=== PATIENT | female | born 1985 | race Two or more races ===

== ENCOUNTER 2017-05-10 19:25 | Emergency (ER) | payer MEDICAID ==
[~2017-05-10] VITALS: Ht 165.1 cm; Wt 57.8 kg
[~2017-05-10 19:25] MED LIST: GUAI100S2; PREN-103
[2017-05-10 19:30] VITALS: BP 115/70
[2017-05-10 20:15] LABS: BASOPHILS # (AUTO) 0.2 K/uL (0.00-0.22); EOSINOPHILS # (AUTO) 0.1 K/uL (0-0.4); EOSINOPHILS % (AUTO) 1.1 % (0.0-4.0); HEMOGLOBIN 12.2 g/dL (12.0-16.0); LYMPHOCYTES % (AUTO) 18.6 % (20.5-51.1); MEAN CORPUSCULAR HEMOGLOBIN 27 pg (27-31); MEAN CORPUSCULAR HGB CONC 32 g/dL (33-37); MEAN CORPUSCULAR VOLUME 85 fL (80-94); MONOCYTES # (AUTO) 0.6 K/uL (0.8-1.0); MONOCYTES % (AUTO) 5.8 % (1.7-9.3); NEUTROPHILS # (AUTO) 7.9 K/uL (1.8-7.7); NEUTROPHILS % (AUTO) 72.5 % (42.2-75.2); PLATELET COUNT (AUTO) 142 K/uL (140-450); RED BLOOD CELL COUNT(AUTO) 4.48 MIL/uL (4.20-5.40); RED CELL DISTRIBUTION WIDTH 12.5 % (11.6-13.7); WHITE BLOOD COUNT (AUTO) 10.8 K/uL (4.8-10.8)
[2017-05-10 20:26] LABS: ANION GAP 13.3 (8-16); CARBON DIOXIDE 26.4 mmol/L (21-32); CREATININE 0.7 mg/dL (0.6-1.3); POTASSIUM 3.7 mmol/L (3.5-5.1)
--- NOTE | 2017-05-10 20:28 | NUR ---
BIB WHEELCHAIR FROM US TO ER OF E
[2017-05-10] MEDS ORDERED: KETOROLAC 30 MG/ML VIAL IVP ONE (20:30)
[2017-05-10] MEDS ORDERED: NACL 0.9% 1,000 ML IV ONE (20:30)
[2017-05-10 20:32] LABS: ALBUMIN 3.8 g/dL (3.4-5.0); TOTAL BILIRUBIN 0.3 mg/dL (0.0-1.0)
[2017-05-10 20:44] LABS: APPEARANCE,URINE HAZY (CLEAR); BILIRUBIN,URINE NEGATIVE (NEGATIVE); BLOOD, URINE 2+ (NEGATIVE); COLOR,URINE YELLOW (YELLOW); LEUKOCYTE ESTERASE ,URINE 1+ (NEGATIVE); NITRITE, URINE NEGATIVE (NEGATIVE); UGLUCOSE NEGATIVE (NEGATIVE)
[2017-05-10 20:48] LABS: RBC,URINE 11-20 (MOD) /HPF (0-5)
[2017-05-10 20:49] LABS: WBC,URINE 6-15 (FEW) /HPF (0-5)
--- NOTE | 2017-05-10 20:56 | NUR ---
Pt came to ED c/o epigastric abdominal pain 09/13. She sates las menstral cycle was Mar 11. Pt denies taking medicine or drinking alcohol. Pt VSS. Abdomen is soft and non-tender. Bowel sounds active in all quadrants. A&Ox4. ER MD aware. Continue to monintor.
[2017-05-10 22:36] VITALS: BP 115/70
--- NOTE | 2017-05-11 04:45 | NUR ---
Patient discharged with v/s stable. Written and verbal after care instructions given and explained. Patient alert, oriented and verbalized understanding of instructions. Ambulatory with steady gait. All questions addressed prior to discharge. ID band removed. Patient advised to follow up with PMD. Rx of Zantac, Motrin, Diclegis given. Patient educated on indication of medication including possible reaction and side effects. Opportunity to ask questions provided and answered.
== END 2017-05-10 22:36 | disposition home or self-care (01) ==
LOC: MED 19:25
DX: O99.611 Diseases of the digestive system complicating pregnancy, first trimester (principal); K80.20 Calculus of gallbladder without cholecystitis without obstruction; Z3A.08 8 weeks gestation of pregnancy; Z79.899 Other long term (current) drug therapy
CPT/HCPCS: 36415; 76705; 76801; 80053; 81001; 81025; 83690; 84702; 85025; 86900; 86901; 87086; 99285; J1885

== ENCOUNTER 2022-09-20 11:53 | Inpatient (IN) | payer MEDICAID ==
[~2022-09-20] VITALS: Ht 154.9 cm; Wt 64.9 kg
[2022-09-20 11:58] VITALS: BP 115/57; PULSE 76; RESP 16; TEMP 97.7; O2SAT 100
[2022-09-20] MEDS ORDERED: KETOROLAC 30 MG/ML VIAL IM ONE (12:30)
[2022-09-20] MEDS ORDERED: ALUMINUM HYD/MAG/SIMETHICONE 30 ML UDC PO ONE (12:30)
[2022-09-20 12:58] LABS: APPEARANCE,URINE CLEAR (CLEAR); BILIRUBIN,URINE NEGATIVE (NEGATIVE); BLOOD, URINE TRACE-I (NEGATIVE); COLOR,URINE YELLOW (YELLOW); LEUKOCYTE ESTERASE ,URINE TRACE (NEGATIVE); NITRITE, URINE NEGATIVE (NEGATIVE); PH,URINE 5.5 (5.0-9.0); UGLUCOSE NEGATIVE (NEGATIVE)
[2022-09-20 13:10] LABS: BASOPHILS % (AUTO) 0.2 % (0.0-2.0); EOSINOPHILS # (AUTO) 0.1 K/uL (0-0.4); EOSINOPHILS % (AUTO) 0.5 % (0.0-4.0); HEMATOCRIT 39.6 % (36-48); HEMOGLOBIN 13.5 g/dL (12.0-16.0); LYMPHOCYTES # (AUTO) 1.1 K/uL (2.5-16.5); LYMPHOCYTES % (AUTO) 10.2 % (20.5-51.1); MEAN CORPUSCULAR HEMOGLOBIN 29 pg (27-31); MEAN CORPUSCULAR HGB CONC 34 g/dL (33-37); MEAN CORPUSCULAR VOLUME 84.6 fL (80-94); MONOCYTES # (AUTO) 0.5 K/uL (0.8-1.0); NEUTROPHILS # (AUTO) 8.9 K/uL (1.8-7.7); NEUTROPHILS % (AUTO) 84.1 % (42.2-75.2); PLATELET COUNT (AUTO) 151 K/uL (140-450); RED BLOOD CELL COUNT(AUTO) 4.68 MIL/uL (4.20-5.40); RED CELL DISTRIBUTION WIDTH 13.7 % (11.6-13.7); WHITE BLOOD COUNT (AUTO) 10.6 K/uL (4.8-10.8)
[2022-09-20 13:28] LABS: ALBUMIN 4.1 g/dL (3.4-5.0); ANION GAP 15.1 (8-16); CARBON DIOXIDE 25.4 mmol/L (21-32); CREATININE 0.8 mg/dL (0.6-1.3); POTASSIUM 3.5 mmol/L (3.5-5.1); TOTAL BILIRUBIN 0.8 mg/dL (0.0-1.0)
[2022-09-20 13:33] LABS: TRICHOMONAS,URINE None Seen /HPF (None Seen); YEAST,URINE None Seen /HPF (None Seen)
--- NOTE | 2022-09-20 14:20 | NUR ---
a/o times 4, no ac distress, abd pain 04/15, o2 sat 99% ra, srup times2
[2022-09-20] MEDS ORDERED: POTASSIUM CHLORIDE 10 MEQ TABER PO PRN (14:40)
[2022-09-20] MEDS ORDERED: LORazepam 2 MG/ML VIAL IVP PRN (14:40)
[2022-09-20] MEDS ORDERED: MORPHINE SULFATE 2 MG/ML SYR IVP PRN (14:40)
[2022-09-20] MEDS ORDERED: ACETAMINOPHEN 325 MG TAB PO PRN (14:40)
[2022-09-20] MEDS ORDERED: ONDANSETRON 4 MG/2 ML VIAL IVP PRN (14:40)
[2022-09-20] MEDS ORDERED: DOCUSATE SODIUM 100 MG GELCAP PO PRN (14:40)
[2022-09-20] MEDS ORDERED: ZOLPIDEM 10 MG TAB PO PRN (14:40)
[2022-09-20] MEDS ORDERED: MAG SULF 2000 MG/WATER PREMIX 50 ML IV PRN (14:40)
[2022-09-20] MEDS: NACL 0.9% 1,000 ML IV SCH (14:52)
--- NOTE | 2022-09-20 16:45 | NUR ---
a/o times 4 nad, no abd pain, no n/v, no f/c, o2 sat 98% RA, SR UP TIMES 2
--- NOTE | 2022-09-20 18:33 | NUR ---
PT ARRIVED TO [facility] FROM ER. PT AMBULATED FROM GURNEY TO BED. PT ORIENTED TO UNIT, ROOM, RESTROOM AND CALL LIGHT. SKIN WARM DRY AND INTACT. IV 20G ON R AC INFUSING IVF. RESPIRATIONS EVEN AND UNLABORED ON RA. CALL LIGHT WITHIN REACH. ALL SAFETY PRECAUTIONS IN PLACE.
--- NOTE | 2022-09-20 18:40 | NUR ---
transferred to 112B, report to JOSE Prado, no distress noted. no abd pain, o2 sat 99% ra.
--- NOTE | 2022-09-20 19:19 | NUR ---
RECEIVED REPORT FROM DAY SHIFT NURSE FOR CONTINUITY OF CARE. PT IS AWAKE, ALERT AND ORIENTED X4, ENGLISH SPEAKING, AMBULATORY, AND CONTINENT. STATES LAST BM WAS THIS MORNING, NO DIFFICULTIES. CURRENTLY ON ROOM AIR WITH NO APPARENT SIGNS OF ACUTE DISTRESS NOTED. BREATH SOUNDS WERE EVEN AND LUNG SOUNDS CLEAR. PATIENT STATES NO PAIN AT THIS TIME. OVERALL SKIN IS INTACT, NO OPEN WOUNDS. IV SITE LOCATED TO LEFT AC 20 GAUGE, INTACT AND PATENT. WHITEBOARD UPDATED, CALL LIGHT WITHIN REACH, SAFETY MEASURES IN PLACE.
--- NOTE | 2022-09-20 19:20 | NUR ---
Patient's Plan of Care was discussed and reviewed with NAVEEN: ERICK
--- NOTE | 2022-09-20 19:37 | NUR ---
ENDORSED PT TO IMPLEMENTATION CONSULTANT NURSE FOR CONTINUITY OF CARE. PT IS STABLE.
[2022-09-20 20:00] VITALS: BP 112/74; PULSE 59; RESP 16; TEMP 97.9; O2SAT 97
--- NOTE | 2022-09-20 20:54 | NUR ---
AT BEDSIDE WITH DR MENCHACA AND DR MARADIAGA TO DISCUSS PATIENTS POC AND POSSIBLE SURGERY. RN: ARIANNA AT BEDSIDE TO HELP TRANSLATE. DR MENCHACA DISCUSSED WITH PATIENT THE DETAILS OF THE PROCEDURE. PATIENT VERBALIZED UNDERSTANDING THOUGH STATES SHE IS NERVOUS. PT TO BE NPO AFTER MIDNIGHT ON 09/21. FOR NOW CAN BE ON CLEAR LIQUID DIET STATED BY DR MENCHACA. PLACED ORDER FOR MRCP SCAN AND LIPASE FOR TOMORROW MORNING 09/21. WILL OBTAIN CONSENT FORMS FOR SURGERY, MRCP SCAN, AND POSSIBLE BLOOD TRANSFUSION.
--- NOTE | 2022-09-20 21:30 | NUR ---
CONSENT FORMS OBTAINED AND SIGNED BY PATIENT FOR SURGERY, MRCP SCAN, AND POSSIBLE BLOOD TRANSFUSION.
[2022-09-20 23:47] VITALS: PULSE 59; RESP 16; O2SAT 97
[2022-09-20 23:53] VITALS: PULSE 59; RESP 16; O2SAT 97
[2022-09-21] MEDS: NACL 0.9% 1,000 ML IV SCH ×4 (00:35→20:35)
--- NOTE | 2022-09-21 01:02 | NUR ---
PT ASLEEP AT THIS TIME. FLACC SCORE 0. RESPIRATIONS EVEN AND UNLABORED. NO S/SX OF DISTRESS NOTED.
[2022-09-21 04:00] VITALS: BP 116/66; PULSE 61; RESP 18; TEMP 97.8; O2SAT 98
[2022-09-21 07:05] LABS: BASOPHILS % (AUTO) 0.6 % (0.0-2.0); EOSINOPHILS # (AUTO) 0.2 K/uL (0-0.4); HEMATOCRIT 37.9 % (36-48); LYMPHOCYTES # (AUTO) 1.8 K/uL (2.5-16.5); LYMPHOCYTES % (AUTO) 33.8 % (20.5-51.1); MEAN CORPUSCULAR HEMOGLOBIN 29 pg (27-31); MEAN CORPUSCULAR HGB CONC 34 g/dL (33-37); MEAN CORPUSCULAR VOLUME 84.8 fL (80-94); MONOCYTES # (AUTO) 0.4 K/uL (0.8-1.0); MONOCYTES % (AUTO) 7.8 % (1.7-9.3); NEUTROPHILS # (AUTO) 2.9 K/uL (1.8-7.7); NEUTROPHILS % (AUTO) 54.8 % (42.2-75.2); PLATELET COUNT (AUTO) 148 K/uL (140-450); RED BLOOD CELL COUNT(AUTO) 4.47 MIL/uL (4.20-5.40); RED CELL DISTRIBUTION WIDTH 13.7 % (11.6-13.7); WHITE BLOOD COUNT (AUTO) 5.3 K/uL (4.8-10.8)
[2022-09-21 07:15] LABS: PROTHROMBIN TIME 11.9 secs (10.8-13.4)
[2022-09-21 07:17] LABS: ALBUMIN 3.6 g/dL (3.4-5.0); ANION GAP 13.6 (8-16); CARBON DIOXIDE 26.5 mmol/L (21-32); CREATININE 0.8 mg/dL (0.6-1.3); POTASSIUM 4.1 mmol/L (3.5-5.1); TOTAL BILIRUBIN 0.8 mg/dL (0.0-1.0)
--- NOTE | 2022-09-21 07:26 | NUR ---
ENDORSED TO DAY SHIFT NURSE FOR CONTINUITY OF CARE. PT IS STABLE AT THIS TIME
--- NOTE | 2022-09-21 07:27 | NUR ---
RECEIVED PT FROM PREFORM MACHINE OPERATOR NURSE FOR CONTINUITY OF CARE. PT IS AWAKE, SITTING ON BED PT AWAKE, AOX4.PT ABLE TO VERBALIZE NEEDS. RESPIRATIONS EVEN AND UNLABORED ON RA. SKIN WARM AND DRY. DENIES PAIN. CALL LIGHT WITHIN REACH, ALL SAFETY PRECAUTIONS IN PLACE.
[2022-09-21 08:00] VITALS: BP 109/54; PULSE 60; RESP 18; TEMP 98; O2SAT 97; O2SAT 99
--- NOTE | 2022-09-21 08:00 | NUR ---
Patient's Plan of Care was discussed and reviewed with PATIENT SERVICES MANAGER:
--- NOTE | 2022-09-21 08:53 | NUR ---
PATIENT HAS BEEN SCREENED AND CATEGORIZED LOW NUTRITION RISK. PATIENT WILL BE SEEN WITHIN 7 DAYS OF ADMISSION. 09/20/22-09/27/[address]
[2022-09-21 16:00] VITALS: BP 127/62; PULSE 68; RESP 18; TEMP 98.1; O2SAT 99
--- NOTE | 2022-09-21 19:22 | NUR ---
RECEIVED REPORT FROM DAY SHIFT NURSE FOR CONTINUITY OF CARE. PT IS AWAKE, FAMILY MEMBER AT BEDSIDE. DISCUSSED POC WITH PATIENT AND THE NEED TO BE NPO PRIOR TO HAVING SURGERY TOMORROW MORNING. PATIENT VERBALIZED UNDERSTANDING. FLUSHED IV TO ENSURE PATENCY AND ENCOURAGED PATIENT TO USE CALL LIGHT WHEN SHE NEEDS TO AMBULATE TO THE RESTROOM. CALL LIGHT WAS PLACED WITHIN REACH, SAFETY MEASURES SET IN PLACE. WILL MONITOR THE PATIENT FREQUENTLY THROUGHOUT SHIFT.
--- NOTE | 2022-09-21 19:28 | NUR ---
ENDORSED PT TO PHONE TECHNICIAN NURSE FOR CONTINUITY OF CARE. PT IS STABLE.
[2022-09-21 20:00] VITALS: PULSE 60; RESP 18; O2SAT 97
--- NOTE | 2022-09-21 20:00 | NUR ---
Patient's Plan of Care was discussed and reviewed with MANAGER ZONE: damián Bailey
--- NOTE | 2022-09-21 21:45 | NUR ---
DURING ROUNDS PATIENT EXPRESSED SHE WAS NERVOUS FOR HER PROCEDURE TOMORROW. ANSWERED PATIENTS QUESTIONS AND ENSURED HER THE DR WOULD RE EDUCATE HER ON THE FULL DETAILS OF THE PROCEDURE TOMORROW. PATIENT VERBALIZED UNDERSTANDING. NO OTHER SIGNS OF DISTRESS NOTED AT THIS TIME. WILL CONTINUE MONITORING THE PATIENT.
[2022-09-22] VITALS: BP 121/72; PULSE 69; RESP 16; TEMP 96; O2SAT 97
[2022-09-22] MEDS: NACL 0.9% 1,000 ML IV SCH ×3 (03:59→16:35)
[2022-09-22 06:10] LABS: BASOPHILS # (AUTO) 0.1 K/uL (0.00-0.22); BASOPHILS % (AUTO) 0.9 % (0.0-2.0); EOSINOPHILS # (AUTO) 0.2 K/uL (0-0.4); HEMATOCRIT 36.7 % (36-48); HEMOGLOBIN 12.6 g/dL (12.0-16.0); LYMPHOCYTES # (AUTO) 2.3 K/uL (2.5-16.5); LYMPHOCYTES % (AUTO) 38.8 % (20.5-51.1); MEAN CORPUSCULAR HEMOGLOBIN 29 pg (27-31); MEAN CORPUSCULAR HGB CONC 34 g/dL (33-37); MEAN CORPUSCULAR VOLUME 85.5 fL (80-94); MONOCYTES # (AUTO) 0.4 K/uL (0.8-1.0); MONOCYTES % (AUTO) 7.3 % (1.7-9.3); NEUTROPHILS # (AUTO) 2.9 K/uL (1.8-7.7); PLATELET COUNT (AUTO) 140 K/uL (140-450); RED BLOOD CELL COUNT(AUTO) 4.28 MIL/uL (4.20-5.40); RED CELL DISTRIBUTION WIDTH 13.6 % (11.6-13.7); WHITE BLOOD COUNT (AUTO) 5.8 K/uL (4.8-10.8)
--- NOTE | 2022-09-22 06:39 | NUR ---
PATIENT SLEPT WELL THROUGHOUT SHIFT. NO ACUTE EVENTS OVERNIGHT. PT VOIDED ONCE, NO BOWEL MOVEMENTS. IV FLUSHED FOR PATENCY, STILL INFUSING WELL. PATIENT HAS REMAINED NPO THROUGHOUT SHIFT. WILL ENDORSE TO DAY SHIFT NURSE IN STABLE CONDITION.
--- NOTE | 2022-09-22 06:40 | NUR ---
RECEIVED BEDSIDE REPORT FROM NIGHTSHIFT NURSE ERICK. PT IS RESTING IN BED, NO SIGNS OF DISTRESS, NO REPORTS OF PAIN OR DISCOMFORT. MADE SURE CALL LIGHT IS WITHIN REACH. WILL CONTINUE WITH PT CARE.
[2022-09-22 07:36] LABS: ANION GAP 12.8 (8-16); CARBON DIOXIDE 24.1 mmol/L (21-32); CREATININE 0.7 mg/dL (0.6-1.3); POTASSIUM 3.9 mmol/L (3.5-5.1)
[2022-09-22 08:00] VITALS: PULSE 55; RESP 18; O2SAT 97
--- NOTE | 2022-09-22 19:25 | NUR ---
RECEIVED REPORT FROM AM NURSE FOR CONTINUITY OF CARE. PATIENT WELL RESTED WATCHING TV. NO SOB NOTED ON ROOM AIR. NO COMPLAINTS OF PAIN. CALL LIGHT IN REACH IVF NS INFUSING ORDERED. BED WHEELS LOCKED IN LOW POSITION.
[2022-09-22 20:00] VITALS: BP 126/77; PULSE 66; RESP 18; TEMP 98.5; O2SAT 97
[2022-09-23] MEDS: NACL 0.9% 1,000 ML IV SCH ×3 (02:35→22:35)
[2022-09-23 04:00] VITALS: BP 131/77; PULSE 57; RESP 18; TEMP 97.5; O2SAT 98
[2022-09-23 06:48] LABS: ANION GAP 12.2 (8-16); CARBON DIOXIDE 25.5 mmol/L (21-32); CREATININE 0.7 mg/dL (0.6-1.3); POTASSIUM 3.7 mmol/L (3.5-5.1)
[2022-09-23 07:06] LABS: BASOPHILS % (AUTO) 0.7 % (0.0-2.0); EOSINOPHILS # (AUTO) 0.1 K/uL (0-0.4); EOSINOPHILS % (AUTO) 2.2 % (0.0-4.0); HEMATOCRIT 37.9 % (36-48); HEMOGLOBIN 12.9 g/dL (12.0-16.0); LYMPHOCYTES # (AUTO) 1.9 K/uL (2.5-16.5); LYMPHOCYTES % (AUTO) 32.9 % (20.5-51.1); MEAN CORPUSCULAR HEMOGLOBIN 29 pg (27-31); MEAN CORPUSCULAR HGB CONC 34 g/dL (33-37); MEAN CORPUSCULAR VOLUME 84.2 fL (80-94); MONOCYTES # (AUTO) 0.3 K/uL (0.8-1.0); MONOCYTES % (AUTO) 6.2 % (1.7-9.3); NEUTROPHILS # (AUTO) 3.3 K/uL (1.8-7.7); PLATELET COUNT (AUTO) 149 K/uL (140-450); RED CELL DISTRIBUTION WIDTH 13.4 % (11.6-13.7); WHITE BLOOD COUNT (AUTO) 5.7 K/uL (4.8-10.8)
--- NOTE | 2022-09-23 07:18 | NUR ---
ASSUMED CONTINUITY OF CARE. INITIAL ASSESSMENT DONE. KEEP COMFORTABLE ON BED. CALL LIGHT WITHIN REACH.
--- NOTE | 2022-09-23 07:28 | NUR ---
GAVE BEDSIDE REPORT TO NURSE ALMARAZ FOR CONTINUITY OF CARE. PATIENT STABLE.
[2022-09-23 08:00] VITALS: BP 105/66; PULSE 60; RESP 17; TEMP 97.7; O2SAT 99
[2022-09-23 16:00] VITALS: BP 142/82; PULSE 98; RESP 18; TEMP 97.8; O2SAT 99
[2022-09-23] MEDS ORDERED: ROCURONIUM 50 MG/5 ML VIAL IV ONE ×2 (17:00→18:18)
[2022-09-23] MEDS ORDERED: NEOSTIGMINE 1:1000 10 MG/10 ML VIAL ONE ×2 (17:00→19:45)
[2022-09-23] MEDS ORDERED: PROPOFOL 200 MG/20 ML VIAL IV ONE ×2 (17:00→18:19)
[2022-09-23] MEDS ORDERED: ONDANSETRON 4 MG/2 ML VIAL ONE ×2 (17:00→18:19)
[2022-09-23] MEDS ORDERED: SEVOFLURANE 250 ML BTL INH ONE (17:00)
[2022-09-23] MEDS ORDERED: fentaNYL citrate 0.05 MG/ML - 50mL vial IV ONE (17:00)
[2022-09-23] MEDS ORDERED: GLYCOPYRROLATE 0.2 MG/ML VIAL ONE ×6 (17:00→19:45)
[2022-09-23] MEDS ORDERED: KETOROLAC 30 MG/ML VIAL ONE ×2 (17:00→18:19)
[2022-09-23] MEDS ORDERED: LIDOCAINE 1% 500 MG/50 ML VIAL ONE (17:13)
[2022-09-23] MEDS ORDERED: BUPIVACAINE-MPF/EPI 0.25% 30 ML VIAL INJ ONE (17:14)
--- NOTE | 2022-09-23 17:19 | NUR ---
PT. WENT TO OR VIA GURNEY WITH OR NURSE FOR PROCEDURE. IN STABLE CONDITION.
[2022-09-23] MEDS ORDERED: fentaNYL citrate 0.05 MG/ML VIAL ONE (17:28)
--- NOTE | 2022-09-23 19:03 | NUR ---
REPORT GIVEN TO JUANIS -JOSE. PT. STILL IN OR FOR PROCEDURE.
[2022-09-23] MEDS ORDERED: HYDROcodone/APAP 5/325 MG 1 TAB TAB PO PRN (19:50)
[2022-09-23] MEDS ORDERED: METOCLOPRAMIDE 10 MG/2 ML INJ VIAL IVP PRN (19:59)
[2022-09-23] MEDS: HYDROmorphone 1 MG/ML AMP IVP PRN ×4 (20:00→20:45)
[2022-09-23] MEDS ORDERED: hydrALAZINE 20 MG/ML VIAL IVP PRN (20:00)
[2022-09-23] MEDS ORDERED: LABETALOL 20 MG/4 ML VIAL IVP PRN (20:00)
[2022-09-23] MEDS ORDERED: HYDROmorphone PFS 2 MG/ML SYR ONE (20:08)
--- NOTE | 2022-09-23 20:55 | NUR ---
RETURNED FROM SURGERY VIA BED IS ALERT ORIENTATED IS ON ROOM AIR ABDOMEN IS SOFT TO TOUCH WITH 4PUNCTURE SITES FROM SURGERY NO REDNESS OR DRAINAGE.BILATERALTHROMBOGUARD ARE ON FAMILY AT BEDSIDE IS CONVERSANT MADE COMFORTABLE IN BED
[2022-09-23 21:00] VITALS: BP 124/75; PULSE 60; PULSE 73; RESP 18; TEMP 97; O2SAT 93; O2SAT 97
[2022-09-24] VITALS: BP 130/77; PULSE 77; RESP 18; TEMP 97.5; O2SAT 97
[2022-09-24] MEDS: LACTATED RINGERS 1,000 ML IV SCH ×2 (00:30→06:00)
[2022-09-24 04:00] VITALS: BP 150/71; PULSE 69; RESP 15; TEMP 97.2; O2SAT 99
[2022-09-24 06:50] LABS: ANION GAP 13.6 (8-16); CARBON DIOXIDE 24.2 mmol/L (21-32); CREATININE 0.6 mg/dL (0.6-1.3); POTASSIUM 3.8 mmol/L (3.5-5.1)
[2022-09-24 06:56] LABS: ALBUMIN 3.8 g/dL (3.4-5.0); BILIRUBIN,DIRECT 0.2 mg/dL (0.0-0.3); TOTAL BILIRUBIN 0.8 mg/dL (0.0-1.0)
[2022-09-24 06:57] LABS: BASOPHILS % (AUTO) 0.1 % (0.0-2.0); HEMATOCRIT 39.9 % (36-48); HEMOGLOBIN 13.5 g/dL (12.0-16.0); LYMPHOCYTES # (AUTO) 0.7 K/uL (2.5-16.5); LYMPHOCYTES % (AUTO) 4.3 % (20.5-51.1); MEAN CORPUSCULAR HEMOGLOBIN 29 pg (27-31); MEAN CORPUSCULAR HGB CONC 34 g/dL (33-37); MEAN CORPUSCULAR VOLUME 85.3 fL (80-94); MONOCYTES # (AUTO) 0.8 K/uL (0.8-1.0); MONOCYTES % (AUTO) 4.7 % (1.7-9.3); NEUTROPHILS # (AUTO) 15.5 K/uL (1.8-7.7); NEUTROPHILS % (AUTO) 90.9 % (42.2-75.2); PLATELET COUNT (AUTO) 138 K/uL (140-450); RED BLOOD CELL COUNT(AUTO) 4.67 MIL/uL (4.20-5.40); RED CELL DISTRIBUTION WIDTH 13.3 % (11.6-13.7); WHITE BLOOD COUNT (AUTO) 17.1 K/uL (4.8-10.8)
--- NOTE | 2022-09-24 07:06 | NUR ---
ASSUMED CONTINUITY OF CARE. INITIAL ASSESSMENT DONE. NO C/O PAIN. KEEP COMFORTABLE ON BED. CALL LIGHT WITHIN REACH.
[2022-09-24 08:00] VITALS: BP 123/74; PULSE 66; PULSE 70; RESP 17; RESP 18; TEMP 98.8; O2SAT 99
--- NOTE | 2022-09-24 08:00 | NUR ---
Patient's Plan of Care was discussed and reviewed with FIRE ALARM REPAIRER: SUNG
[2022-09-24] MEDS: NACL 0.9% 1,000 ML IV SCH (09:47)
--- NOTE | 2022-09-24 10:14 | NUR ---
DR. MENCHACA CALLED AND ORDERED REGULAR DIET AND ASKED TO INFORM DR. KLINE TO PRESCRIBE DURING D/C ORAL ANTIBIOTIC FOR 5 DAYS. NO FURTHER ORDER RECEIVED. PAGED DR. KLINE AND INFORMED ABOUT DR. MENCHACA RECOMMENDATION FOR THE PT. D/C PRESCRIPTION OF ORAL ANTIBIOTIC FOR 5 DAYS. INFORMED CHARGE NURSE DRE BURGOS.
[2022-09-24] MEDS ORDERED: AMOX-1230 PO (10:26)
--- NOTE | 2022-09-24 15:00 | NUR ---
D/C HOME VIA WHEELCHAIR. A & O X4. NO C/O PAIN. IN STABLE CONDITION. INFORMED CHARGE NURSE DRE BURGOS.
== END 2022-09-24 15:00 | disposition home or self-care (01) | DRG 263 ==
LOC: MED 11:53 → MMU 14:37 → MTU 18:09
PROVIDERS: ADMIT Family Medicine; ATTEND Family Medicine
PROC: 0FT44ZZ Resection of Gallbladder, Percutaneous Endoscopic Approach (ICD-10-PCS; principal; 2022-09-23 16:30)
DX: K85.10 Biliary acute pancreatitis without necrosis or infection (principal); K80.00 Calculus of gallbladder with acute cholecystitis without obstruction; Z20.822 Contact with and (suspected) exposure to COVID-19; Z79.899 Other long term (current) drug therapy
CPT/HCPCS: 36415; 76705; 80048; 80053; 80076; 81001; 81025; 82374; 83690; 83735; 85025; 85610; 85730; 86886; 86900; 86901; 87081; 88304; 96372; 99285; J0694; J1170; J1885; J2001; J2270; J2405; J2704; J2710; J3010; J3490; J7030; J7060; J7120; Q0092